=== PATIENT | female | born 1990 | race African-American/Black ===

== ENCOUNTER 2019-04-01 14:05 | Emergency (ER) | payer BC, OTHER ==
--- NOTE | 2019-04-01 16:53 | ED ---
Abdominal Pain/Female - HPI Summary HPI Summary: A 29 y/o F presents to ED c/o sudden-onset, epigastric abd pain of undulating intensity onset last night aprox 1800. At bedside, she rates the pain as 4 out of 10, and is non-radiating. She says it feels that her abd is "flipping." Associated sx: dizziness, nausea, diaphoretic. Denies ABDUL, CP, cough, urinary sx , bloody stool. She took a Tylenol to no relief. She's had episodes of gastritis 3-4 years ago, and today's abd pain feels similar, only more severe. Previously, eating has helped alleviate the pain. She's never had an endoscopy or ulcer. Pt states she took a prescription for her gastritis before, and it went away. [facility]: a month ago, she has a non-medicated IUD. She does not have a PCP. NKDA. Vitals at bedside: HR: 77 bpm, BP: 126/75, O2 sat: 97%. Home Medications Medication Instructions Recorded Confirmed Type NK [No Home Medications Reported] 04/01/19 04/01/19 History - History of Current Complaint Chief Complaint: EDAbdPain Stated Complaint: "ABDOMINAL PAIN PER PT" Time Seen by Provider: 04/01/19 16:38 Hx Obtained From: Patient Hx Last Menstrual Period: one month ago ?: No - IUD Onset/Duration: Sudden Onset, Lasting Hours - onset yesterday at 1800, Still Present Timing: Constant - undulating intensity Severity Initially: Severe Severity Currently: Mild Pain Intensity: 8 - at its worst Pain Scale Used: 0-10 Numeric Location: Epigastric Radiates: No Character: Sharp, Other: - "flipping" Aggravating Factor(s): Nothing Alleviating Factor(s): Nothing Associated Signs and Symptoms: Positive: Diaphoresis, Dizzy, Nausea, Other: - neg: ABDUL. Negative: Cough, Chest Pain, Blood in Stool, Urinary Symptoms Allergies/Adverse Reactions: Allergies Allergy/AdvReac Type Severity Reaction Status Date / Time No Known Allergies Allergy Verified 04/01/19 14:12 PMH/Surg Hx/FS Hx/Imm Hx Previously Healthy: Yes Endocrine/Hematology History: Denies: Hx Diabetes Cardiovascular History: Denies: Hx Hypertension Respiratory History: Denies: Hx Asthma Sensory History: Reports: Hx Contacts or Glasses Opthamlomology History: Reports: Hx Contacts or Glasses Neurological History: Reports: Hx Migraine - occurring more frequently as of 2019 - Surgical History Surgery Procedure, Year, and Place: Non-medicated IUD Infectious Disease History: No Infectious Disease History: Reports: Traveled Outside the [place] in Last 30 Days - Family History Known Family History: Positive: Diabetes - 2 - Social History Occupation: Employed Full-time Lives: Alone Alcohol Use: Rare Hx Substance Use: Yes Substance Use Type: Reports: Marijuana - not often Hx Tobacco Use: No Smoking Status (MU): Never Smoked Tobacco Review of Systems Positive: Skin Diaphoresis Negative: Chest Pain Negative: Cough Positive: Abdominal Pain, Nausea. Negative: Other - neg; bloody stool Negative: dysuria, hematuria Musculoskeletal: Negative Skin: Negative Neurological: Other - pos: dizziness Negative: Headache Psychological: Normal All Other Systems Reviewed And Are Negative: Yes Physical Exam - Summary Physical Exam Summary: Appearance: Well-appearing, mild abdominal pain distress, well-nourished Skin: Warm, color reflects adequate perfusion, dry Head: Normal Head/Face inspection, atraumatic Eyes: Conjunctiva clear ENT: Normal inspection Neck: Supple, no nodes, no JVD Respiratory: Lungs clear, normal breath sounds, no respiratory distress Cardio: RRR, No murmur, pulses normal, brisk capillary refill Abdomen: Soft, minimal epigastric tenderness that extends to mid chest, nondistended, no masses, no CVAT Bowel sounds: Present Musculoskeletal: Strength Intact/ROM intact, no calf tenderness, no edema. Psychological: Normal Neuro: Alert, muscle tone normal, no focal deficit Triage Information Reviewed: Yes Vital Signs On Initial Exam: Initial Vitals Temp Pulse Resp BP Pulse Ox 97.5 F 75 18 147/80 99 04/01/19 14:09 04/01/19 14:09 04/01/19 14:09 04/01/19 14:09 04/01/19 14:09 Vital Signs Reviewed: Yes Diagnostics - Vital Signs Vital Signs Temp Pulse Resp BP Pulse Ox 04/01/19 16:07 97.9 F 72 18 132/71 95 04/01/19 14:09 97.5 F 75 18 147/80 99 - Laboratory Result Diagrams: 04/01/19 17:11 04/01/19 17:11 Lab Statement: Any lab studies that have been ordered have been reviewed, and results considered in the medical decision making process. Abdominal Pain Fem Course/Dx - Course Course Of Treatment: Patient is a 29 y/o F presenting with sudden-onset, epigastric abd pain of undulating intensity onset last night aprox 1800. Pain is non-radiating, and a 4/10 at bedside. PMHx: gastritis, and she feels her sx today feel the same. Allergies noted, high blood pressure noted. Pt medications reviewed this visit. Nurses note reviewed. As patient has had these sx and dx: gastritis, previously, I am in agreement with the patient to forego imaging. Lab work is without significant abnormality. HCT is 34, (normal is 35), amylase is 111 (normal is 103), lipase is normal. Will discharge home with Pantoprazole, and to establish with a PCP and to follow up with Dr. Armida Yanez, GI. - Diagnoses Differential Diagnosis: Positive: Gall Bladder Disease, Hepatitis, Pancreatitis , Peptic Ulcer Disease Provider Diagnoses: Gastritis, Elevated BP without diagnosis of hypertension Discharge - Sign-Out/Discharge Documenting (check all that apply): Patient Departure - D/C Patient Received Moderate/Deep Sedation with Procedure: No - Discharge Plan Condition: Stable Disposition: HOME Prescriptions: Pantoprazole TAB * [Protonix TAB*] 40 mg PO DAILY #30 tab Patient Education Materials: Pantoprazole (By mouth), Gastritis (ED) Referrals: [facility] [Outside] - If Needed Maria Guadalupe Gallo MD [Medical Doctor] - 1 Week Additional Instructions: As we discussed, limit Ibuprofen and aspirin medications when possible. For pain , it's recommended that you take Tylenol aka acetaminophen. RETURN TO THE EMERGENCY DEPARTMENT FOR CHANGING OR WORSENING SYMPTOMS. - Billing Disposition and Condition Condition: STABLE Disposition: Home - Attestation Statements Document Initiated by Scribe: Yes Documenting Scribe: Ranulfo Arizmendi Provider For Whom Андрейibe is Documenting (Include Credential): Dr. Bee Ardon MD Scribe Attestation: Ranulfo Carroll, scribed for Dr. Bee Ardon MD on 04/02/19 at 0023. Scribe Documentation Reviewed: Yes Provider Attestation: The documentation as recorded by the Ranulfo phipps accurately reflects the service I personally performed and the decisions made by me, Dr. Bee Ardon MD Status of Scribe Document: Viewed
[2019-04-01 17:35] LABS: ABS Eosinophils 0.2 10^3/ul (0-0.6); ABS Lymphocytes 1.6 10^3/ul (1.0-4.8); ABS Monocytes 0.5 10^3/ul (0-0.8); ABS Neutrophils 5.5 10^3/ul (1.5-7.7); Eosinophil % 2.4 %; Hematocrit 34 % (35-47); Hemoglobin 11.2 g/dL (12.0-16.0); Lymphocyte % 20.9 %; Mean Corpuscular HGB Conc 33 g/dL (31-36); Mean Corpuscular Hemoglobin 28 pg (27-31); Mean Corpuscular Volume 84 fL (80-97); Mean Platelet Volume 7.4 fL (7.4-10.4); Nucleated Red Blood Cells % 0.1; Platelet Count 289 10^3/uL (150-450); Red Blood Count 4.05 10^6 /uL (3.70-4.87); Red Cell Distribution Width 16 % (10-15); White Blood Count 7.8 10^3/uL (3.5-10.8)
[2019-04-01] MEDS ORDERED: Pantoprazole TAB * 40 MG TAB PO ONE (17:46)
[2019-04-01 17:52] LABS: ALT 8 U/L (7-52); AST 17 U/L (13-39); Albumin 4.2 g/dL (3.2-5.2); Albumin/Globulin Ratio 1.4 (1-3); Alkaline Phosphatase 57 U/L (34-104); Anion Gap 5 mmol/L (2-11); BUN/Creatinine Ratio 12.9 (8-20); Blood Urea Nitrogen 8 mg/dL (6-24); C Reactive Protein < 1.00 mg/L (<8.01); CO2 Carbon Dioxide 26 mmol/L (22-32); Calcium 9.5 mg/dL (8.6-10.3); Chloride 107 mmol/L (101-111); EGFR African American 136.8 (>60); Globulin 2.9 g/dL (2-4); Glucose 102 mg/dL (70-100); Potassium 4.1 mmol/L (3.5-5.0); Sodium 138 mmol/L (135-145); Total Protein 7.1 g/dL (6.4-8.9)
[2019-04-01 17:55] LABS: HCG Pregnancy < 0.60 mIU/mL
[2019-04-01 18:04] VITALS: BP 122/80
== END 2019-04-01 18:03 | disposition home or self-care (01) ==
LOC: ED 14:05
DX: K29.70 Gastritis, unspecified, without bleeding (principal); R03.0 Elevated blood-pressure reading, without diagnosis of hypertension
CPT/HCPCS: 36415; 80053; 82150; 83605; 83690; 84702; 85025; 86140; 99283; A9270-GY

== ENCOUNTER 2022-07-27 19:24 | Inpatient (IN) ==
[2022-07-27 22:44] LABS: ABS Basophils 0.1 10^3/ul (0-0.2); ABS Lymphocytes 1.6 10^3/ul (1.0-4.8); ABS Monocytes 0.8 10^3/ul (0-0.8); ABS Neutrophils 7.7 10^3/ul (1.5-7.7); Eosinophil % 0.1 %; Hematocrit 35 % (35-47); Hemoglobin 10.9 g/dL (12.0-16.0); Lymphocyte % 15.5 %; Mean Corpuscular HGB Conc 32 g/dL (31-36); Mean Corpuscular Hemoglobin 26 pg (27-31); Mean Corpuscular Volume 82 fL (80-97); Mean Platelet Volume 7.2 fL (7.4-10.4); Platelet Count 372 10^3/uL (150-450); Red Blood Count 4.22 10^6 /uL (3.70-4.87); Red Cell Distribution Width 16 % (10-15); White Blood Count 10.1 10^3/uL (3.5-10.8)
[2022-07-27 22:58] LABS: Urine Appearance Cloudy; Urine Bilirubin Negative (Negative); Urine Blood Negative (Negative); Urine Color Amber; Urine Glucose Negative (Negative); Urine Ketones 2+ (Negative); Urine Nitrite Negative (Negative); Urine Protein 2+(100 mg/dL) (Negative); Urine Specific Gravity 1.029 (1.002-1.030); Urine Urobilinogen Negative (Negative)
[2022-07-27 23:03] LABS: Urine Bacteria 1+ (Absent); Urine Red Blood Cell 2+(6-10/hpf) (Absent); Urine Squamous Epithelial Cell Present (Absent); Urine White Blood Cell 2+(11-20/hpf) (Absent)
[2022-07-27 23:18] LABS: Urine Benzodiazepine Screen None Detected (None Detect); Urine Cannabinoids Screen Presumptive Positive (None Detect); Urine Opiates Screen None Detected (None Detect)
[2022-07-27 23:32] LABS: ALT 8 U/L (7-52); AST 18 U/L (13-39); Acetaminophen < 15 mcg/mL; Albumin 4.6 g/dL (3.2-5.2); Albumin/Globulin Ratio 1.6 (1-3); Alcohol, S < 13 mg/dL (<13); Alkaline Phosphatase 103 U/L (35-149); Anion Gap 9 mmol/L (2-11); Blood Urea Nitrogen 11 mg/dL (6-24); CO2 Carbon Dioxide 21 mmol/L (22-32); Calcium 9.5 mg/dL (8.6-10.3); Chloride 107 mmol/L (101-111); Globulin 2.8 g/dL (2-4); Glucose 66 mg/dL (70-100); Salicylate < 2.50 mg/dL (<30); Sodium 137 mmol/L (135-145); Total Protein 7.4 g/dL (6.4-8.9); eGFR CKD-EPI 119.6 (>60)
[2022-07-27 23:38] LABS: HCG Pregnancy < 0.60 mIU/mL
[2022-07-28] MEDS ORDERED: Haloperidol 5 mg/ml SDV IV/IM 5 MG/ML AMP IM ONE (01:04)
[2022-07-28] MEDS ORDERED: Al Hydrox/Mg Hydrox/Simet LIQ 30 ML UDC PO PRN (04:27)
[2022-07-28] MEDS: Vitamin THERAPEUTIC TAB PO SCH (08:42)
[2022-07-29 08:03] VITALS: BP 108/62
[2022-07-29] MEDS: Vitamin THERAPEUTIC TAB PO SCH (09:09)
[2022-07-30] MEDS: Vitamin THERAPEUTIC TAB PO SCH (08:24)
== END 2022-07-30 14:10 | disposition home or self-care (01) | DRG 754 ==
LOC: ED 19:24 → EDHOLD 07-28 00:30 → BSU 07-28 01:00
PROVIDERS: ADMIT Psychiatry & Neurology Psychiatry; ATTEND Psychiatry & Neurology Psychiatry